=== PATIENT | male | born 1965 | race Hispanic/Latino ===

== ENCOUNTER 2021-02-07 09:08 | Emergency (ER) | payer OTHER ==
[~2021-02-07] VITALS: Ht 162.6 cm; Wt 74.8 kg
[2021-02-07] MEDS ORDERED: ONDANSETRON 4MG INJ IVP SCH (09:30)
[2021-02-07] MEDS ORDERED: 0.9%NACL 1000ML 1,776 ML IV SCH (09:30)
[2021-02-07 09:49] LABS: BASOPHILS % (AUTO) 0.4 % (0.0-5.0); EOSINOPHILS % (AUTO) 0.1 % (0.0-8.0); HEMATOCRIT 44.2 % (42-54); LYMPHOCYTES % (AUTO) 4.5 % (21.0-51.0); MEAN CORPUSCULAR HEMOGLOBIN 29.5 pg (27.0-33.0); MEAN CORPUSCULAR VOLUME 89.3 fL (79-99); MONOCYTES % (AUTO) 1.7 % (3.0-13.0); NEUTROPHILS % (AUTO) 92.9 % (40.0-77.0); PLATELET COUNT (AUTO) 173 K/uL (130-400); RED BLOOD CELL COUNT(AUTO) 4.95 MIL/uL (4.50-6.20); RED CELL DISTRIBUTION WIDTH 13.3 % (11.0-15.5); WHITE BLOOD COUNT (AUTO) 14.1 K/uL (4.8-10.8)
[2021-02-07 09:52] LABS: APPEARANCE,URINE Clear (CLEAR); BILIRUBIN,URINE Negative (NEGATIVE); COLOR,URINE Yellow (YELLOW); GLUCOSE, URINE (UA) Negative (NEGATIVE); KETONES,URINE Negative (NEGATIVE); LEUKOCYTE ESTERASE ,URINE Negative (NEGATIVE); NITRATE,URINE Negative (NEGATIVE); OCCULT BLOOD,URINE Negative (NEGATIVE); PROTEIN,URINE Negative (NEGATIVE)
[2021-02-07 09:57] LABS: CREATININE 0.8 mg/dL (0.5-1.5); POTASSIUM 3.8 mmol/L (3.5-5.1)
[2021-02-07] MEDS ORDERED: ACETAMINOPHEN 500 MG TABLET PO SCH (10:00)
[2021-02-07 10:04] LABS: ALBUMIN 4.1 g/dL (3.5-5.0); BILIRUBIN,TOTAL 0.8 mg/dL (0.2-1.0); TOTAL PROTEIN, SERUM 7.3 g/dL (6.0-8.3)
[2021-02-07] MEDS ORDERED: ACETAMINOPHEN 500 MG TABLET ONE (10:05)
[2021-02-07 10:12] LABS: INR 1.02 (0.85-1.15); PROTHROMBIN TIME 11.1 SEC (9.6-11.6)
[2021-02-07 10:14] LABS: PARTIAL THROMBOPLASTIN TIME 23.4 SEC (26.3-35.5)
[2021-02-07 10:23] LABS: B-TYPE NATRIURETIC PEPTIDE < 5 pg/mL (0-100)
[2021-02-07] MEDS ORDERED: IOHEXOL-350 75 ML VIAL IV ONE (12:51)
[2021-02-07] MEDS ORDERED: DOXYCYCLINE HYCLATE 100 MG TABLET PO SCH (15:30)
[2021-02-07] MEDS ORDERED: DOXY-336 PO (15:38)
[2021-02-07] MEDS ORDERED: IBUP-2070 PO (15:38)
[2021-02-07 16:49] VITALS: BP 157/92
== END 2021-02-07 16:51 | disposition home or self-care (01) ==
LOC: EDH 09:08
DX: R50.9 Fever, unspecified (principal); R53.1 Weakness; R11.2 Nausea with vomiting, unspecified; Z20.822 Contact with and (suspected) exposure to COVID-19; F17.210 Nicotine dependence, cigarettes, uncomplicated; Z79.1 Long term (current) use of non-steroidal anti-inflammatories (NSAID); Z87.19 Personal history of other diseases of the digestive system
CPT/HCPCS: 36415; 71045; 74178; 80053; 81003; 82550; 83605 ×2; 83880; 84145; 84484; 85025; 85610; 85730; 87040 ×2; 87088; 87635; 87804 ×2; 87880; 93005; 96360; 99285; C9803; J7030; Q9967